=== PATIENT | male | born 1985 | race Caucasian/White ===

== ENCOUNTER 2024-01-25 18:27 | Emergency (ER) | payer BC, SELFPAY ==
[2024-01-25] MEDS ORDERED: Acetaminophen 325 MG TAB ONE (19:20)
[2024-01-25] MEDS ORDERED: Ketorolac Tromethamine 30 MG (1 mL) VIAL ONE (19:20)
[2024-01-25] MEDS ORDERED: Lidocaine 4% Patch ONE (19:20)
== END 2024-01-25 19:45 | disposition home or self-care (01) ==
LOC: MADERS 18:27
DX: S22.42XA Multiple fractures of ribs, left side, initial encounter for closed fracture (principal); W55.22XA Struck by cow, initial encounter
CPT/HCPCS: 96372; J1885